=== PATIENT | female | born 1955 | race African-American/Black ===

== ENCOUNTER 2023-12-05 13:08 | Emergency (ER) | payer BC, OTHER ==
[2023-12-05 13:18] VITALS: BP 138/70; PULSE 75; RESP 20; TEMP 98; BMI 32.5
== END 2023-12-05 16:00 | disposition short-term general hospital (02) ==
LOC: JER 13:08
DX: H43.391 Other vitreous opacities, right eye (principal)
CPT/HCPCS: 99285-25